=== PATIENT | male | born 1980 | race African-American/Black ===

== ENCOUNTER 2017-07-12 10:21 | Emergency (ER) | payer SELFPAY ==
[~2017-07-12] VITALS: Ht 188 cm; Wt 90.9 kg
[2017-07-12 10:31] VITALS: BP 147/93; TEMP 98.7
[2017-07-12] MEDS ORDERED: GLUCOPHAGE1000 MG PO (11:45)
[2017-07-12] MEDS ORDERED: NORVASC 10MG10 MG PO (11:46)
[2017-07-12] MEDS ORDERED: ZITHROMAX Z PA250 MG PO (11:53)
[2017-07-12 12:04] VITALS: PULSE 90
== END 2017-07-12 12:04 | disposition home or self-care (01) ==
LOC: COL.ER 10:21
DX: J40 Bronchitis, not specified as acute or chronic (principal); G89.29 Other chronic pain; M25.561 Pain in right knee; E11.9 Type 2 diabetes mellitus without complications; I10 Essential (primary) hypertension; Z79.84 Long term (current) use of oral hypoglycemic drugs
CPT/HCPCS: J1885